=== PATIENT | male | born 2000 | race Caucasian/White ===

== ENCOUNTER 2021-02-14 19:23 | Emergency (ER) | payer MEDICAID ==
[~2021-02-14] VITALS: Ht 167.7 cm; Wt 75.3 kg
[~2021-02-14 19:23] MED LIST: AC325T; CEPH250T PO; CPRH4T PO; PRM12.5SU RC
[2021-02-14 20:25] VITALS: BP 125/84
== END 2021-02-14 20:25 | disposition left against medical advice (07) ==
LOC: EDUNIT# 19:23 → ER 19:25
DX: M54.2 Cervicalgia (principal)
CPT/HCPCS: 99281

== ENCOUNTER 2022-01-11 21:32 | Emergency (ER) | payer MEDICAID ==
[~2022-01-11] VITALS: Ht 175 cm; Wt 74.0 kg
[2022-01-11 22:00] VITALS: BP 127/83
[2022-01-11] MEDS ORDERED: TETANUS,DIPTH,PERTUSS P/F (BOOSTRIX) 0.5 ML VIAL IM ONE (23:15)
--- NOTE | 2022-01-11 23:19 | ED Upper Extremity ---
General Chief Complaint: Laceration Stated Complaint: R RING FINGER LAC Nursing Triage Note: Pt presents with laceration to R ring finger. Pt reports he was attempting to catch a glass vase when it fell and broke in his hand. Denies any other injury. Pt placed pressure on wound, bleeding controlled upon arrival to ER. Source: patient Exam Limitations: no limitations History of Present Illness Date Seen by Provider: Jan 11, 2022 Time Seen by Provider: 22:30 Initial Comments This 21-year-old young man presents to the emergency room with a laceration on the volar aspect of his right ring finger at the DIP crease. He has some oozing of blood from a superficial arterial. Laceration occurred when he tried to catch a vase that was falling and it broke in his hand. The base was a clear blue glass. He does not know when his last tetanus immunization was. He is rather sensitive to the touch on evaluation and wonders if there is foreign body in it. Allergies and Home Medications Allergies Coded Allergies: No Known Drug Allergies (Unverified , 10/24/08) Patient Home Medication List Home Medication List Reviewed: Yes Acetaminophen (Tylenol) 325 Mg Tablet, (Reported) Entered as Reported by: THAI GUARDADO on 01/14/101947 Cyproheptadine Hcl (Periactin) 4 Mg Tablet, 1 EACH PO TID Prescribed by: SONNY YOON on 01/14/102247 Promethazine Hcl (Phenergan Supp 12.5) 12.5 Mg/Supp.rect Supp.rect, 1 SUPP RC TID Prescribed by: SONNY YOON on 01/14/102247 Review of Systems Constitutional: no symptoms reported Musculoskeletal: no symptoms reported Skin: see HPI Psychiatric/Neurological: No Symptoms Reported Past Duwobvw-Rkqzre-Ovprtg Hx Patient Social History Tobacco Use?: Yes Immunizations Up To Date PED Vaccines UTD: Yes Influenza Vaccine Up-to-Date: No; Not Current Past Medical History Surgery/Hospitalization HX: ORAL SURGERY Surgeries: Yes (Oral) Respiratory: No Cardiac: No Neurological: No Reproductive Disorders: No Genitourinary: No Gastrointestinal: No Musculoskeletal: No Endocrine: No HEENT: No Cancer: No Psychosocial: No Physical Exam Vital Signs Vital Signs - First Documented 01/11/22 22:00 Temp 37.2 Pulse 113 Resp 16 B/P (MAP) 127/83 (98) Pulse Ox 96 O2 Delivery Room Air Capillary Refill : Less Than 3 Seconds Height, Weight, BMI Height: 5'3" Weight: 121lbs. oz. 54.332692fy; 24.00 BMI Method:Stated General Appearance: WD/WN HEENT: normal ENT inspection Respiratory: no respiratory distress Wrist: Yes normal inspection, Yes non-tender, Yes no evidence of injury, Yes normal ROM Hand: normal ROM, Right (1 cm laceration into the subcutaneous tissue on the volar surface of the distal IP joint of the fourth finger. No foreign body identified. Minor bleeding noted. Extension and flexion intact. Tenderness around the laceration.) Neurologic/Psychiatric: no motor/sensory deficits, alert, normal mood/affect, oriented x 3 Skin: normal color, warm/dry, other (See above) Procedures/Interventions Wound Location: Upper Extremities Other Wound Location Right ring finger, palm are DIP joint Wound Length (cm): 1 Wound's Depth, Shape: linear, irregular, sub Q Wound Explored: clean Irrigated w/ Saline (ccs): 100 Betadine Prep?: Yes Anesthesia: 1% Lidocaine Suture: Prolene Suture Size: 5-0 Number of Sutures: 2 Sterile Dressing Applied?: Yes Progress Wound was closely examined under magnification. No foreign bodies were identified. However, he had unusual tenderness even after soaking with lidocaine with epinephrine. X-rays were obtained to rule out any radiopaque foreign body. Wound was again cleaned with saline and chlorhexidine. Wound was rinsed with saline. Betadine prep was applied. Local anesthetic was provided with lidocaine injection. 2 Prolene 5-0 sutures were applied to approximate the wound. Nursing staff dressed the wound. Progress/Results/Core Measures Results/Orders My Orders Orders - MINA JOSUE MD Finger(S) (01/11/22 23:12) Dipht,Pertuss(Acell),Tet Adult (Boostrix (01/11/22 23:15) Medications Given in ED Vital Signs/I&O Blood Pressure Mean: 98 Progress Progress Note : Time: 23:16 Progress Note Tetanus booster will be administered. Evaluation of the laceration under magnification reveals no visible foreign body. He has rather sensitive to the touch even after using topical lidocaine with epinephrine dripped on the wound. X-ray will be obtained to evaluate for possible foreign body. Since this is a colored glass, and may show on x-ray. The laceration is gaping enough with exposed adipose tissue to benefit from suture. I plan to place 2 sutures of 5-0 Prolene to approximate the wound. Diagnostic Imaging Diagonstic Imaging: Xray Plain Films/CT/US/NM/MRI: other (Right fourth finger) Comments X-ray viewed by me. Report reviewed later. No foreign bodies identified. NAME: HALIE QUIGLEY [facility] REC#: [id number] PT STATUS: DEP ER : 2000 PHYSICIAN: MINA JOSUE MD ADMIT DATE: 01/11/22/ER Signed Date of Exam:01/11/22 FINGER(S) Indication: Possible foreign body and 4th finger AP and lateral views of 4th finger are obtained. FINDINGS: No acute fracture or dislocation is identified. No abnormal lytic or sclerotic focus is seen, and there is no radiopaque foreign body. IMPRESSION: No acute abnormality. Dictated by: Dictated on workstation # [id number] Dict: 01/12/22707 Trans: 01/12/22[facility] [id number] Interpreted by: SOFIE CHAN MD Electronically signed by: SOFIE CHAN MD 01/12/22 0708 Departure Impression Primary Impression: Laceration of finger Qualified Codes: S61.214A - Laceration without foreign body of right ring finger without damage to nail, initial encounter Disposition: 01 HOME, SELF-CARE Condition: Improved Departure-Patient Inst. Decision time for Depature: 23:18 Referrals: [facility] [place] (PCP/Family) Primary Care Physician Patient Instructions: Laceration Repair With Stitches (DC) Add. Discharge Instructions: Keep your wound clean and dry except for normal handwashing and showering. Do not submerge until sutures are removed. Cover when active and in dirty environments. You also may wish to cover while asleep to avoid disrupting the sutures. Keep open to air when at rest in a clean environment. If drainage from the wound causes the dressing to stick, moistened with tap water and let set for a few minutes before removing the dressing. Monitor for signs of infection such as increasing redness, increasing swelling, puslike drainage, or fever. Return to care promptly if you notice the symptoms. Return in 8 to 10 days to have sutures removed. You may use Tylenol and/or ibuprofen for pain. All discharge instructions reviewed with patient and/or family. Voiced understanding. MINA JOSUE MD Jan 11, 2022 23:19
--- NOTE | 2022-01-12 07:10 | Diagnostic Imaging Report ---
Indication: Possible foreign body and 4th finger AP and lateral views of 4th finger are obtained. FINDINGS: No acute fracture or dislocation is identified. No abnormal lytic or sclerotic focus is seen, and there is no radiopaque foreign body. IMPRESSION: No acute abnormality. Dictated by: Dictated on workstation # [id number]
== END 2022-01-11 23:57 | disposition home or self-care (01) ==
LOC: ER 21:32
DX: S61.214A Laceration without foreign body of right ring finger without damage to nail, initial encounter (principal); Z72.0 Tobacco use; Z23 Encounter for immunization; Z28.310 Unvaccinated for COVID-19; W25.XXXA Contact with sharp glass, initial encounter
CPT/HCPCS: 73140; 90715